=== PATIENT | male | born 1975 | race Caucasian/White ===

== ENCOUNTER 2016-07-28 06:16 | Observation (INO) | payer OTHER ==
[~2016-07-28] VITALS: Ht 165.1 cm; Wt 68.2 kg
--- NOTE | 2016-07-29 06:57 | HP ---
ADMIT: 07/28/2016 RM/LOC: 527 [facility] MR#: [id number] [address] [place] [address] [place] [address] History and Physical SEX: M AGE: 41 : 1975 DATE OF SERVICE: CHIEF COMPLAINT: Allergic reaction. HISTORY OF PRESENT ILLNESS: A 41-year-old male, came in to the emergency room early hours this morning complaining of left-sided abdominal pain. He had this pain for unknown duration. There has been no fever. No nausea or vomiting. No diarrhea. No change in stool habits. The pain was severe, cramping pain. He was evaluated in the emergency room. Given IV Protonix, IV Zofran, IV Toradol, and sent to x-ray for a CT scan. When he came back from x-ray, he was having dyspnea, shortness of breath, and audible wheezing. His O2 sats dropped into the mid 80s. He required oxygen. He was given IV Benadryl, IV Solu-Medrol, and IV Pepcid. His O2 sats remained borderline, requiring oxygen; therefore, admitted to the hospital for allergic reaction. He does not have any history of any allergic reaction, but these medications were given IV and he has never had these medicines before. ALLERGIES: NONE LISTED. MEDICATIONS: None listed. PREVIOUS HOSPITALIZATIONS: None. OPERATIONS: None. SOCIAL HISTORY: Denies any tobacco or alcohol use. FAMILY HISTORY: Noncontributory. REVIEW OF SYSTEMS: Negative other than the abdominal pain which is described above. Left-sided sharp cramping pain on and off last several days. Again, no other symptomatology. PHYSICAL EXAMINATION: GENERAL: A 41-year-old male, does not appear to be in distress at this time. He was examined at 11:30 a.m. VITAL SIGNS: Stable. BP is 122/80, respiratory rate is 22, temp 98.4, O2 saturation is 93% on room air. HEENT: Eyes, PERRLA. EOMs intact. TMs not seen. Throat is moist, not inflamed. NECK: Supple. No meningeal signs. LUNGS: Clear to auscultation. Respirations not labored. There are no wheezes. No retractions. HEART: Regular rate. No murmur. ABDOMEN: Flat. Bowel sounds normoactive. No masses, organomegaly, or tenderness. /RECTAL: Deferred. ADMIT: 07/28/2016 RM/LOC: 527 [facility] MR#: [id number] [address] [place], [address], [place] [address] History and Physical SEX: M AGE: 41 : 1975 EXTREMITIES: No clubbing, cyanosis, or edema. DIAGNOSTIC IMPRESSION: 1. Allergic reaction to either Zofran, Toradol, or Protonix, all given IV, now improved. 2. Abdominal pain, possible irritable bowel, appears to have resolved with above medications. PLAN: We will monitor him over the next couple hours. If he continues to have normal oxygen saturation, no respiratory distress, no abdominal pain, we will allow him to eat lunch today. If he is doing well after lunch, he may be dismissed, and follow up in the office in one to two weeks. Roberto Matias MD/ erickson JOB #: [id number] CC: Roberto Matias, Attending Physician Roberto Matias, Family Physician
--- NOTE | 2016-08-30 17:09 | ER ---
ADMIT: 07/28/2016 RM/LOC: 527 [facility] MR#: [id number] [address] [place] [address] [place] [address] Emergency Room Report SEX: M AGE: 41 : 1975 DATE: 07/28/2016 A 41-year-old, came to the Emergency Department with complaints of left lower abdominal pain of several days duration, crampy in nature, nonradiating. Complains of loss of appetite. Pain does radiate into his back. He was initially seen by my colleague. He was given Zofran, Toradol, Protonix and a GI cocktail. Signed over to me at 7 o'clock. Sent him for a KUB. When he returned, he had obviously experiencing allergic reaction to presumably one of the medicines he was given. He was wheezy. Oxygen saturations had dropped dramatically. He was tachycardic. There was urticarial rash over his entire body. He was given Benadryl, Pepcid, and Solu-Medrol IV, and slowly resolved, as well as an albuterol treatment; however, he continued to have mild-to- moderate wheezes, which required oxygen to maintain his saturations in the 90s. He was subsequently admitted with: 1. Allergic reaction. 2. Abdominal pain. Sesar Carey MD/ erickson JOB #: [id number] CC: Roberto Matias MD, Attending Physician Roberto Matias MD, Family Physician
== END 2016-07-28 13:30 | disposition home or self-care (01) ==
LOC: EDBD 06:16 → ER 06:16 → 5MS 10:15
PROVIDERS: ADMIT Family Medicine
DX: R10.9 Unspecified abdominal pain (principal); R06.02 Shortness of breath; T45.0X5A Adverse effect of antiallergic and antiemetic drugs, initial encounter; T39.8X5A Adverse effect of other nonopioid analgesics and antipyretics, not elsewhere classified, initial encounter; T47.1X5A Adverse effect of other antacids and anti-gastric-secretion drugs, initial encounter